=== PATIENT | male | born 1975 | race Caucasian/White ===

== ENCOUNTER 2023-12-06 10:12 | Outpatient (CLI) | payer MEDICAID, SELFPAY ==
--- NOTE | ~2023-12-06 | CT_ITS ---
EXAMINATION: CT lumbar spine wo con DATE: 12/06/2023 10:31 INDICATION: Spondylosis without myelopathy or radiculopathy. TECHNIQUE: Computed tomography (CT) of the lumbar spine was performed without intravenous contrast. A utomated exposure control and iterative reconstruction technique were employed. The dose-length produ ct was 1600.06 mGy-cm. COMPARISON: Lumbar spine MRI 12/06/2023 FINDINGS: There is 3 mm retrolisthesis of L2 on L3. There is 5 mm anterolisthesis of L4 on L5. There is mild chronic anterior wedging of T10-T12 vertebral bodies. There are bridging endplate osteophytes from T9 to T12, consistent with diffuse idiopathic skeletal hyperostosis (DISH). There is mildly dec reased disc height at L1-L2 and moderately decreased disc height at L2-L3. There are changes of anter ior and posterior fusion procedures from L3 to L5 with healed interbody bone graft and pedicle screws . There is mildly decreased disc height at L5-S1. There are laminectomies at L3 and L4. The following disc levels are specifically discussed: L1-L2: The disc is bulging. There is severe bilateral facet joint osteoarthritis. There is mild right neural foraminal stenosis. There is mild central canal stenosis. L2-L3: The disc is bulging. There is severe bilateral facet joint osteoarthritis. There is moderate b ilateral neural foraminal stenosis. There is mild central canal stenosis. L3-L4: There is mild bilateral facet joint hypertrophy. There is mild bilateral neural foraminal sten osis. There is mild central canal stenosis with posterior decompression. L4-L5: There is no facet joint hypertrophy. There is mild bilateral neural foraminal stenosis with po sterior decompression. There is no central canal stenosis. L5-S1: The disc is bulging. There is severe bilateral facet joint osteoarthritis. There is moderate b ilateral neural foraminal stenosis. There is mild central canal stenosis. IMPRESSION: 1. Moderate lumbar spondylosis. 2. Anterior and posterior fusion procedures from L3 to L5. 3. Thoracic DISH. Reviewed, dictated and finalized at location E.
--- NOTE | ~2023-12-06 | MR_ITS ---
MRI of the lumbar spine Clinical History: Spondylosis Technique: Axial T2-weighted images, and sagittal T1-weighted, T2-weighted, and and T2 fat-sat images were acquired. Findings: There is posterior fusion hardware from L3 through L5, with bilateral rods and transpedicul ar screws present, with extensive susceptibility artifact. There is posterior decompression present a t L3 and L4. No acute fracture seen. There is minimal grade 1 retrolisthesis of L2 over L3. No suspic ious bone marrow signal abnormality seen. At L1-L2, there is no disc bulge or herniation. There is advanced facet arthropathy. No spinal canal stenosis or neural foraminal narrowing. At L2-L3, there is mild degenerative disc narrowing. Disc bulge and severe facet arthropathy result i n moderate spinal canal stenosis. There is severe bilateral neural foraminal compromise. At L3-L4, there is posterior decompression, with no spinal canal stenosis. There is mild right neural foraminal narrowing. Left neural foramen preserved. At L4-L5, there is no spinal canal stenosis. Probable mild bilateral neural foraminal narrowing. Ther e is a seroma in the posterior paravertebral soft tissues measuring 2.6 cm in maximum diameter. At L5-S1, there is disc protrusion at the central to right paracentral region with severe facet arthr opathy. Possible mild impingement of descending right-sided S1-S2 level nerve root. There is mild francisco tral canal stenosis. There is moderate bilateral neural foraminal narrowing. Impression: Posterior fusion changes from L3 through L5, as detailed above. Minimal grade 1 retrolisthesis of L2 over L3. Degenerative spondylitic changes, as above. Possible impingement of the descending right-sided S1-S2 level nerve root related to a right paracentral disc protrusion at L5-S1 level. Reviewed, dictated and finalized at location M. Impression: Posterior fusion changes from L3 through L5, as detailed above. Minimal grade 1 retrolisthesis of L2 over L3. Degenerative spondylitic changes, as above. Possible impingement of the descend ing right-sided S1-S2 level nerve root related to a right paracentral disc prot rusion at L5-S1 level.
== END 2023-12-06 10:13 | disposition home or self-care (01) ==
LOC: ANHIMG 10:17
PROVIDERS: PCP Nurse Practitioner Family; Visit Provider Physician Assistant
DX: M47.816 Spondylosis without myelopathy or radiculopathy, lumbar region (principal); M43.16 Spondylolisthesis, lumbar region; M48.14 Ankylosing hyperostosis [Forestier], thoracic region; Z98.1 Arthrodesis status
CPT/HCPCS: 72131; 72148